=== PATIENT | male | born 2000 | race Caucasian/White ===

== ENCOUNTER 2022-06-16 02:55 | Emergency (ER) | payer OTHER ==
[2022-06-16] MEDS ORDERED: Lactated Ringers 1,000 ML IV ONE (02:56)
[2022-06-16] MEDS ORDERED: Propofol 200 MG/20 ML SDV IV ONE (02:56)
[2022-06-16] MEDS ORDERED: Succinylcholine 200 MG/10 ML MDV IV ONE (02:56)
[2022-06-16] MEDS ORDERED: Ketamine 500 mg/10 ML MDV IV ONE (02:56)
[2022-06-16] MEDS ORDERED: propofoL 100 ML ONE (03:16)
[2022-06-16] MEDS ORDERED: propofoL 100 ML IV SCH (03:22)
[2022-06-16 04:00] LABS: ESTIMATED GFR 109 mL/min (>60)
== END 2022-06-16 04:40 ==
LOC: JD.ED 02:55
DX: T71.162A Asphyxiation due to hanging, intentional self-harm, initial encounter (principal)
CPT/HCPCS: 31500; 36415; 43752; 51702; 70450; 71045; 72125; 80053; 80306; 80307; 81003; 82150; 83605; 85025; 85610; 85730; 86850; 86900; 86901; 99285; J0330; J2704; J3490; J7120